=== PATIENT | male | born 1940 | race Two or more races ===

== ENCOUNTER 2022-08-11 09:50 | Emergency (ER) | payer OTHER ==
[~2022-08-11] VITALS: Ht 188 cm; Wt 88.0 kg
[2022-08-11] MEDS ORDERED: TENORMIN25 MG PO (10:17)
[2022-08-11] MEDS ORDERED: COZAAR25 MG (10:17)
[2022-08-11] MEDS ORDERED: HORIZANT300 MG PO (10:18)
== END 2022-08-11 13:32 | disposition home or self-care (01) ==
LOC: ER 09:50
DX: S80.811A Abrasion, right lower leg, initial encounter (principal); X58.XXXA Exposure to other specified factors, initial encounter; Y93.89 Activity, other specified; Y92.89 Other specified places as the place of occurrence of the external cause; R53.1 Weakness; Z88.6 Allergy status to analgesic agent; Z88.0 Allergy status to penicillin

== ENCOUNTER 2025-08-23 19:14 | Inpatient (IN) | payer OTHER ==
[~2025-08-23] VITALS: Ht 182.9 cm; Wt 90.7 kg
[~2025-08-23 19:14] MED LIST: COZAAR25 MG; HORIZANT300 MG PO; TENORMIN25 MG PO
[2025-08-23] MEDS ORDERED: SODIUM CHLORIDE FOR INHALATION 1 VIAL.NEB IH ONE (21:06)
[2025-08-23] MEDS ORDERED: LEVALBUTEROL HCL 0.63 MG/3 ML SOLUTION IH ONE (21:06)
[2025-08-23 21:07] LABS: BASO % 0.7 % (0.1-1.2); EOS # 0.04 (0.04-0.54); EOS % 0.4 % (0.7-7.0); LYMPH # 1.15 (1.18-3.74); LYMPH % 10.9 % (19.3-53.1); MEAN PLATELET VOLUME 9.70 fl (9.4-12.4); MONO # 0.89 (0.24-0.82); MONO % 8.5 % (4.7-12.5); NEUT # 8.20 (1.56-6.13); NEUT % 78.0 % (34.0-71.1); RED CELL DISTRIBUTION WIDTH 12.5 % (11.6-14.4)
[2025-08-23] MEDS ORDERED: LEVALBUTEROL HCL 1.25 MG/3 ML SOLUTION IH SCH (21:15)
[2025-08-23] MEDS ORDERED: 0.9 % SODIUM CHLORIDE 1,000 ML IV ONE (21:15)
[2025-08-23] MEDS ORDERED: GUAIFENESIN 200 MG/10 ML BLIST.PACK PO ONE (21:15)
[2025-08-23] MEDS ORDERED: GUAIFEN/DEXTROMETHORPHAN/PE 10 ML BLIST.PACK PO ONE (21:17)
[2025-08-23 21:39] LABS: ALT/SGPT 11.0 U/L (12-78); AST/SGOT 9.0 U/L (15-37); BILIRUBIN TOTAL 0.47 mg/dL (0.3-1.2); BUN CREA RATIO 26.0 (7.0-25.0); CREATININE SERUM 1.21 mg/dL (0.70-1.30); GFR 57.13; GLOBULINA 3.8 G/DL (2.4-3.5); GLUCOSE FASTING 134.0 mg/dL (65-100); OSMOLALITY SERUM 294.0 MOSM/KG (275-295)
[2025-08-23 22:01] LABS: COVID-19 AG NEGATIVE (NEGATIVE)
[2025-08-24] VITALS (7 sets, daily range): BP systolic 76–101; BP diastolic 46–70; O2SAT 98–100
[2025-08-24 01:07] LABS: URINE APPEARANCE Turbid; URINE BILIRRUBIN Negative (NEGATIVE); URINE BLOOD Moderate; URINE COLOR Orange; URINE GLUCOSE Negative (NEGATIVE); URINE KETONE Negative (NEGATIVE); URINE LEUKOCYTE Large; URINE NITRATE Positive; URINE UROBILINOGEN 0.2 E.U./dl
[2025-08-24 01:11] LABS: URINE EPITHELIAL CELLS 92.6 uL (0.0-38.8); URINE RBC 1068.1 uL (0.0-20.8); URINE WBC 1025.3 uL (0.0-23.2)
[2025-08-24] MEDS ORDERED: GUAIFENESIN 200 MG/10 ML BLIST.PACK PO STA (01:18)
[2025-08-24] MEDS ORDERED: LEVALBUTEROL HCL 0.63 MG/3 ML SOLUTION IH ONE ×5 (01:26→16:13)
[2025-08-24 01:30] LABS: URINE PROTEIN 100 (NEGATIVE)
[2025-08-24] MEDS ORDERED: LEVALBUTEROL HCL 0.63 MG/3 ML SOLUTION IH SCH ×3 (01:30→13:10)
[2025-08-24 01:31] LABS: URINE BACTERIA > 9821.5 uL (0.0-1933); URINE CAST > 21.83 uL (0.0-1.40)
[2025-08-24] MEDS ORDERED: CIPROFLOXACIN IN 5 % DEXTROSE 400 MG/200 ML PIGGYBAG IV STA (01:44)
[2025-08-24] MEDS ORDERED: CIPROFLOXACIN IN 5 % DEXTROSE 400 MG/200 ML PIGGYBAG IV ONE (01:49)
[2025-08-24] MEDS ORDERED: GUAIFENESIN 200 MG/10 ML BLIST.PACK PO ONE (01:49)
[2025-08-24] MEDS ORDERED: NOREPINEPHRINE BITARTRATE 1 MG/ML AMPUL IV ONE (03:25)
[2025-08-24] MEDS ORDERED: NOREPINEPHRINE BITARTRATE 8 MG in DEXTROSE 5 % IN WATER 250 ML IV SCH (03:45)
[2025-08-24] MEDS ORDERED: MEROPENEM 500 MG/VIAL VIAL IV SCH (13:00)
[2025-08-24] MEDS ORDERED: IPRATROPIUM BROMIDE 0.5 MG/2.5 ML AMPUL.NEB IH SCH (13:10)
[2025-08-24] MEDS ORDERED: ENOXAPARIN SODIUM 80 MG/0.8 ML SYRINGE SUBCUTANEO SCH (13:12)
[2025-08-24] MEDS ORDERED: TAMSULOSIN HCL 0.4 MG CAP PO SCH (13:12)
[2025-08-24] MEDS ORDERED: 0.9 % SODIUM CHLORIDE 1,000 ML IV SCH (13:15)
[2025-08-24] MEDS ORDERED: PANTOPRAZOLE SODIUM 40 MG/VIAL VIAL IV SCH (13:15)
[2025-08-24] MEDS ORDERED: IPRATROPIUM BROMIDE 0.5 MG/2.5 ML AMPUL.NEB IH ONE ×2 (13:21→16:13)
[2025-08-24] MEDS ORDERED: ENOXAPARIN SODIUM 80 MG/0.8 ML SYRINGE SUBCUTANEO ONE (15:16)
[2025-08-24] MEDS ORDERED: VANCOMYCIN HCL 1,000 MG VIAL ONE (16:55)
[2025-08-24] MEDS ORDERED: VANCOMYCIN HCL 1,000 MG VIAL IV SCH (17:00)
[2025-08-25] VITALS (13 sets, daily range): BP systolic 84–120; BP diastolic 58–84; O2SAT 97–107
[2025-08-25 08:09] LABS: LDH 154.0 U/L (87-241)
[2025-08-25 08:42] LABS: MYCOPLASMA PNEUMONIAE IGM NON REACTIVE (NO REACTIVE)
[2025-08-25] MEDS ORDERED: MAGNESIUM SULFATE IN WATER 4 GM/100 ML PIGGYBACK IV NR (12:00)
[2025-08-25] MEDS ORDERED: SODIUM CHLORIDE FOR INHALATION 1 VIAL.NEB IH SCH (13:00)
[2025-08-25 15:33] LABS: BASO % 0.4 % (0.1-1.2); EOS # 0.05 (0.04-0.54); EOS % 0.4 % (0.7-7.0); LYMPH # 1.00 (1.18-3.74); LYMPH % 8.5 % (19.3-53.1); MEAN PLATELET VOLUME 10.10 fl (9.4-12.4); MONO # 0.87 (0.24-0.82); MONO % 7.4 % (4.7-12.5); NEUT # 9.64 (1.56-6.13); NEUT % 82.2 % (34.0-71.1); RED CELL DISTRIBUTION WIDTH 12.6 % (11.6-14.4)
[2025-08-25] MEDS ORDERED: VANCOMYCIN HCL 1,000 MG VIAL ONE (15:49)
[2025-08-25 15:53] LABS: ERYTHROCYTE SEDIMENTATION RATE 83 mm/hr (0-20)
[2025-08-25 16:08] LABS: ALT/SGPT 10.0 U/L (12-78); AST/SGOT 11.0 U/L (15-37); BILIRUBIN TOTAL 0.43 mg/dL (0.3-1.2); BUN CREA RATIO 24.0 (7.0-25.0); CREATININE SERUM 1.28 mg/dL (0.70-1.30); GFR 53.54; GLOBULINA 3.1 G/DL (2.4-3.5); GLUCOSE FASTING 95.0 mg/dL (65-100); OSMOLALITY SERUM 295.0 MOSM/KG (275-295)
[2025-08-25 18:20] LABS: INR 1.33
[2025-08-26] VITALS (15 sets, daily range): BP systolic 92–131; BP diastolic 49–91; O2SAT 98–100
[2025-08-26] MEDS ORDERED: AMIODARONE HCL 900 MG/500 ML KIT IV ONE (09:11)
[2025-08-26] MEDS ORDERED: AMIODARONE HCL 50 MG/ML AMPUL IV SCH (09:30)
[2025-08-26] MEDS ORDERED: AMIODARONE HCL 900 MG in DEXTROSE 5 % IN WATER 500 ML IV SCH (09:30)
[2025-08-26 12:02] LABS: BASO % 0.2 % (0.1-1.2); EOS # 0.02 (0.04-0.54); EOS % 0.2 % (0.7-7.0); LYMPH # 0.77 (1.18-3.74); LYMPH % 6.4 % (19.3-53.1); MEAN PLATELET VOLUME 10.00 fl (9.4-12.4); MONO # 0.67 (0.24-0.82); MONO % 5.6 % (4.7-12.5); NEUT # 10.45 (1.56-6.13); NEUT % 86.8 % (34.0-71.1); RED CELL DISTRIBUTION WIDTH 12.5 % (11.6-14.4)
[2025-08-26 13:41] LABS: BUN CREA RATIO 23.0 (7.0-25.0); CREATININE SERUM 1.15 mg/dL (0.70-1.30); GFR 60.58
[2025-08-26 13:46] LABS: GLUCOSE FASTING 220.0 mg/dL (65-100); OSMOLALITY SERUM 300.0 MOSM/KG (275-295)
[2025-08-26] MEDS ORDERED: VANCOMYCIN HCL 1,000 MG VIAL ONE (14:37)
[2025-08-26] MEDS ORDERED: SOD FERRIC GLUC COMPLX/SUCROSE 62.5 MG in 0.9 % SODIUM CHLORIDE 50 ML IV SCH (17:00)
[2025-08-27] VITALS (25 sets, daily range): BP systolic 102–145; BP diastolic 58–95; O2SAT 98–100
[2025-08-27] MEDS ORDERED: AMIODARONE HCL 200 MG TABLET PO SCH (09:00)
[2025-08-27] MEDS ORDERED: WATER IV ONE ×3 (11:11→11:20)
[2025-08-27] MEDS ORDERED: DEXTROSE 5% IV ONE ×3 (11:11→11:20)
[2025-08-27] MEDS ORDERED: AMIODARONE HCL 900 MG in DEXTROSE 5 % IN WATER 500 ML IV SCH (11:45)
[2025-08-27] MEDS ORDERED: VANCOMYCIN HCL 1,000 MG VIAL ONE (15:28)
[2025-08-27] MEDS ORDERED: CEFEPIME HCL 2,000 MG VIAL IV SCH (21:00)
[2025-08-27] MEDS ORDERED: PANTOPRAZOLE SODIUM 40 MG/VIAL VIAL IV PUSH SCH (21:00)
[2025-08-28] VITALS (23 sets, daily range): BP systolic 118–140; BP diastolic 67–96; O2SAT 97–100
[2025-08-28 00:55] LABS: BASO % 0.3 % (0.1-1.2); EOS # 0.08 (0.04-0.54); EOS % 0.8 % (0.7-7.0); LYMPH # 0.79 (1.18-3.74); LYMPH % 8.3 % (19.3-53.1); MEAN PLATELET VOLUME 9.60 fl (9.4-12.4); MONO # 0.65 (0.24-0.82); MONO % 6.8 % (4.7-12.5); NEUT # 7.81 (1.56-6.13); NEUT % 81.8 % (34.0-71.1); RED CELL DISTRIBUTION WIDTH 14.1 % (11.6-14.4)
[2025-08-28] MEDS ORDERED: MORPHINE SULFATE 4 MG/ML CARTRIDGE IV PRN (05:00)
[2025-08-28 05:59] LABS: URINE APPEARANCE Turbid; URINE BILIRRUBIN Negative (NEGATIVE); URINE BLOOD Large; URINE COLOR Yellow; URINE GLUCOSE Negative (NEGATIVE); URINE KETONE 15 (NEGATIVE); URINE LEUKOCYTE Small; URINE NITRATE Negative; URINE UROBILINOGEN 0.2 E.U./dl
[2025-08-28 06:03] LABS: URINE BACTERIA 97.2 uL (0.0-1933); URINE EPITHELIAL CELLS 80.9 uL (0.0-38.8); URINE RBC 1094.5 uL (0.0-20.8); URINE WBC 258.9 uL (0.0-23.2)
[2025-08-28 06:23] LABS: URINE CAST > 21.83 uL (0.0-1.40); URINE CRYSTALS MANY /HPF; URINE PROTEIN 100 (NEGATIVE)
[2025-08-28] MEDS ORDERED: VANCOMYCIN HCL 1,000 MG VIAL ONE (17:33)
[2025-08-29] VITALS (18 sets, daily range): BP systolic 101–1289; BP diastolic 61–98; O2SAT 99–100
[2025-08-29] MEDS ORDERED: VANCOMYCIN HCL 1,000 MG VIAL ONE (16:39)
[2025-08-29] MEDS ORDERED: POLYVINYL ALCOHOL 15 ML DROPS OP SCH (19:04)
[2025-08-29] MEDS ORDERED: CHLORHEXIDINE GLUCONATE 15ML BRUSH KIT MM SCH (19:05)
[2025-08-30] VITALS (21 sets, daily range): BP systolic 93–127; BP diastolic 60–92; O2SAT 95–100
[2025-08-30 07:14] LABS: BASO % 0.5 % (0.1-1.2); EOS # 0.13 (0.04-0.54); EOS % 1.4 % (0.7-7.0); LYMPH # 0.70 (1.18-3.74); LYMPH % 7.4 % (19.3-53.1); MEAN PLATELET VOLUME 10.70 fl (9.4-12.4); MONO # 0.61 (0.24-0.82); MONO % 6.5 % (4.7-12.5); NEUT # 7.75 (1.56-6.13); NEUT % 82.0 % (34.0-71.1); RED CELL DISTRIBUTION WIDTH 13.9 % (11.6-14.4)
[2025-08-30 08:10] LABS: ALT/SGPT 9.0 U/L (12-78); AST/SGOT 10.0 U/L (15-37); BILIRUBIN TOTAL 0.32 mg/dL (0.3-1.2); BUN CREA RATIO 24.0 (7.0-25.0); CREATININE SERUM 0.78 mg/dL (0.70-1.30); GFR 94.83; GLOBULINA 2.9 G/DL (2.4-3.5); GLUCOSE FASTING 149.0 mg/dL (65-100); OSMOLALITY SERUM 301.0 MOSM/KG (275-295)
[2025-08-30] MEDS ORDERED: MAGNESIUM SULFATE IN WATER 4 GM/100 ML PIGGYBACK IV NR (10:00)
[2025-08-30] MEDS ORDERED: POTASSIUM PHOS,M-BASIC-D-BASIC 3 MM/ML VIAL IV ONE (12:00)
[2025-08-30] MEDS ORDERED: VANCOMYCIN HCL 1,000 MG VIAL ONE (15:09)
[2025-08-30] MEDS ORDERED: MORPHINE SULFATE 4 MG/ML CARTRIDGE IV PRN (23:45)
[2025-08-30] MEDS ORDERED: MORPHINE SULFATE 4 MG/ML CARTRIDGE IV SCH (23:46)
[2025-08-31] VITALS (23 sets, daily range): BP systolic 102–145; BP diastolic 61–97; O2SAT 95–100
[2025-08-31 08:17] LABS: BASO % 0.8 % (0.1-1.2); EOS # 0.20 (0.04-0.54); EOS % 2.2 % (0.7-7.0); LYMPH # 0.85 (1.18-3.74); LYMPH % 9.3 % (19.3-53.1); MEAN PLATELET VOLUME 10.90 fl (9.4-12.4); MONO # 0.61 (0.24-0.82); MONO % 6.7 % (4.7-12.5); NEUT # 7.07 (1.56-6.13); NEUT % 77.5 % (34.0-71.1); RED CELL DISTRIBUTION WIDTH 14.0 % (11.6-14.4)
[2025-08-31 08:48] LABS: ALT/SGPT 11.0 U/L (12-78); AST/SGOT 11.0 U/L (15-37); BILIRUBIN TOTAL 0.29 mg/dL (0.3-1.2); BUN CREA RATIO 26.0 (7.0-25.0); CREATININE SERUM 0.74 mg/dL (0.70-1.30); GFR 100.77; GLOBULINA 2.9 G/DL (2.4-3.5); GLUCOSE FASTING 107.0 mg/dL (65-100); OSMOLALITY SERUM 299.0 MOSM/KG (275-295)
[2025-08-31 09:58] LABS: BAND MAN 6.0 %; LYMPHOCYTE MAN 6.0 %; MONOCYTE MAN 3.0 %; NEUTROPHILS MAN 81.0 %
[2025-08-31 09:59] LABS: EOSINOPHIL MAN 4.0 %
[2025-08-31] MEDS ORDERED: POTASSIUM PHOS,M-BASIC-D-BASIC 18 MM in 0.9 % SODIUM CHLORIDE 250 ML IV ONE (12:00)
[2025-08-31] MEDS ORDERED: AMIODARONE HCL 900 MG/500 ML KIT IV ONE (20:25)
[2025-08-31] MEDS ORDERED: MORPHINE SULFATE 4 MG/ML CARTRIDGE IV PRN (23:45)
[2025-09-01] VITALS (13 sets, daily range): BP systolic 97–141; BP diastolic 57–90; O2SAT 100
[2025-09-01] MEDS ORDERED: POTASSIUM PHOS,M-BASIC-D-BASIC 18 MM in 0.9 % SODIUM CHLORIDE 250 ML IV ONE (14:00)
[2025-09-01] MEDS ORDERED: AMIODARONE HCL 200 MG TABLET NGT SCH (17:00)
[2025-09-01] MEDS ORDERED: ALBUMIN HUMAN 100 ML VIAL IV ONE (17:00)
[2025-09-02 04:00] VITALS: BP 125/71; O2SAT 100
[2025-09-02 07:14] VITALS: BP 117/69; O2SAT 100
[2025-09-02 09:54] LABS: BASO % 0.5 % (0.1-1.2); EOS # 0.23 (0.04-0.54); EOS % 2.4 % (0.7-7.0); LYMPH # 0.68 (1.18-3.74); LYMPH % 7.2 % (19.3-53.1); MEAN PLATELET VOLUME 10.30 fl (9.4-12.4); MONO # 0.69 (0.24-0.82); MONO % 7.3 % (4.7-12.5); NEUT # 7.57 (1.56-6.13); NEUT % 80.6 % (34.0-71.1); RED CELL DISTRIBUTION WIDTH 14.3 % (11.6-14.4)
[2025-09-02 10:36] LABS: ALT/SGPT 13.0 U/L (12-78); AST/SGOT 15.0 U/L (15-37); BILIRUBIN TOTAL 0.32 mg/dL (0.3-1.2); BUN CREA RATIO 26.0 (7.0-25.0); CREATININE SERUM 0.97 mg/dL (0.70-1.30); GFR 73.73; GLOBULINA 3.0 G/DL (2.4-3.5); GLUCOSE FASTING 106.0 mg/dL (65-100); OSMOLALITY SERUM 295.0 MOSM/KG (275-295)
[2025-09-02 12:00] VITALS: BP 160/99; O2SAT 100
[2025-09-02] MEDS ORDERED: MAGNESIUM SULFATE IN WATER 4 GM/100 ML PIGGYBACK IV NR (12:00)
[2025-09-02] MEDS ORDERED: NAPH,MB-DB/K PH,MBDB 1 PKT PACKET PO SCH (13:00)
[2025-09-02] MEDS ORDERED: MORPHINE SULFATE 4 MG/ML CARTRIDGE IV PRN (14:00)
[2025-09-02 15:15] VITALS: BP 139/84; O2SAT 100
[2025-09-02] MEDS ORDERED: SOD FERRIC GLUC COMPLX/SUCROSE 62.5 MG in 0.9 % SODIUM CHLORIDE 50 ML IV SCH (17:00)
[2025-09-02 23:06] VITALS: BP 123/70
[2025-09-03 04:00] VITALS: BP 125/73; O2SAT 100
[2025-09-03 06:41] LABS: BASO % 0.5 % (0.1-1.2); EOS # 0.21 (0.04-0.54); EOS % 2.3 % (0.7-7.0); LYMPH # 0.61 (1.18-3.74); LYMPH % 6.7 % (19.3-53.1); MEAN PLATELET VOLUME 10.50 fl (9.4-12.4); MONO # 0.68 (0.24-0.82); MONO % 7.5 % (4.7-12.5); NEUT # 7.35 (1.56-6.13); NEUT % 80.7 % (34.0-71.1); RED CELL DISTRIBUTION WIDTH 14.2 % (11.6-14.4)
[2025-09-03 07:10] LABS: ALT/SGPT 12.0 U/L (12-78); AST/SGOT 16.0 U/L (15-37); BILIRUBIN TOTAL 0.31 mg/dL (0.3-1.2); BUN CREA RATIO 30.0 (7.0-25.0); CREATININE SERUM 0.96 mg/dL (0.70-1.30); GFR 74.62; GLOBULINA 3.2 G/DL (2.4-3.5); GLUCOSE FASTING 106.0 mg/dL (65-100); OSMOLALITY SERUM 297.0 MOSM/KG (275-295)
[2025-09-03 07:14] VITALS: BP 166/81; O2SAT 100
[2025-09-03 08:00] VITALS: BP 135/77; O2SAT 100
[2025-09-03 12:00] VITALS: BP 139/81; O2SAT 100
[2025-09-03 15:13] VITALS: BP 139/81; O2SAT 100
[2025-09-03 23:00] VITALS: BP 125/88; O2SAT 100
[2025-09-04 04:20] VITALS: BP 124/84; O2SAT 100
[2025-09-04] MEDS ORDERED: FAMOTIDINE/PF 20 MG in 0.9 % SODIUM CHLORIDE 100 ML IV SCH (05:00)
[2025-09-04 07:39] VITALS: BP 120/74; O2SAT 99
[2025-09-04] MEDS ORDERED: METHYLPREDNISOLONE SOD SUCC 40 MG VIAL IV NR (10:15)
[2025-09-04 12:00] VITALS: BP 138/70; O2SAT 100
[2025-09-04 15:18] VITALS: BP 138/70; O2SAT 100
[2025-09-04 20:06] VITALS: BP 131/72; O2SAT 100
[2025-09-04] MEDS ORDERED: METHYLPREDNISOLONE SOD SUCC 40 MG VIAL IV SCH (21:00)
[2025-09-05 04:00] VITALS: BP 101/63; O2SAT 100
[2025-09-05 06:30] LABS: BASO % 0.1 % (0.1-1.2); EOS # 0.00 (0.04-0.54); EOS % 0.0 % (0.7-7.0); LYMPH # 0.51 (1.18-3.74); LYMPH % 4.2 % (19.3-53.1); MEAN PLATELET VOLUME 10.80 fl (9.4-12.4); MONO # 0.53 (0.24-0.82); MONO % 4.4 % (4.7-12.5); NEUT # 10.88 (1.56-6.13); NEUT % 89.3 % (34.0-71.1); RED CELL DISTRIBUTION WIDTH 14.6 % (11.6-14.4)
[2025-09-05 06:56] VITALS: BP 87/55; O2SAT 95
[2025-09-05 07:04] LABS: BUN CREA RATIO 30.0 (7.0-25.0); CREATININE SERUM 1.45 mg/dL (0.70-1.30); GFR 46.36
[2025-09-05 07:05] LABS: GLUCOSE FASTING 204.0 mg/dL (65-100); OSMOLALITY SERUM 309.0 MOSM/KG (275-295)
[2025-09-05 12:00] VITALS: BP 109/68; O2SAT 100
[2025-09-05 15:02] VITALS: BP 106/67; O2SAT 100
[2025-09-05] MEDS ORDERED: DEXTROSE 5 % IN WATER 1,000 ML IV SCH (16:30)
[2025-09-05] MEDS ORDERED: ANIDULAFUNGIN 100 MG VIAL IV NR (17:00)
[2025-09-05 20:00] VITALS: BP 121/65; O2SAT 100
[2025-09-05] MEDS ORDERED: AMIODARONE HCL 900 MG/500 ML KIT IV ONE (22:30)
[2025-09-05] MEDS ORDERED: AMIODARONE HCL 900 MG in DEXTROSE 5 % IN WATER 500 ML IV SCH (22:45)
[2025-09-05 23:06] VITALS: BP 121/61; O2SAT 99
[2025-09-06] VITALS (23 sets, daily range): BP systolic 89–123; BP diastolic 50–76; O2SAT 98–100
[2025-09-06] MEDS ORDERED: AMIODARONE HCL 900 MG in DEXTROSE 5 % IN WATER 500 ML IV SCH (06:45)
[2025-09-06 15:10] LABS: BASO % 0.1 % (0.1-1.2); EOS # 0.00 (0.04-0.54); EOS % 0.0 % (0.7-7.0); LYMPH # 0.59 (1.18-3.74); LYMPH % 4.0 % (19.3-53.1); MEAN PLATELET VOLUME 10.30 fl (9.4-12.4); MONO # 1.05 (0.24-0.82); MONO % 7.1 % (4.7-12.5); NEUT # 12.55 (1.56-6.13); NEUT % 85.5 % (34.0-71.1); RED CELL DISTRIBUTION WIDTH 15.9 % (11.6-14.4)
[2025-09-06 16:44] LABS: ALT/SGPT 19.0 U/L (12-78); AST/SGOT 15.0 U/L (15-37); BILIRUBIN TOTAL 0.45 mg/dL (0.3-1.2); BUN CREA RATIO 23.0 (7.0-25.0); CREATININE SERUM 2.66 mg/dL (0.70-1.30); GFR 23.02; GLOBULINA 3.5 G/DL (2.4-3.5); GLUCOSE FASTING 177.0 mg/dL (65-100); OSMOLALITY SERUM 307.0 MOSM/KG (275-295)
[2025-09-06] MEDS ORDERED: ANIDULAFUNGIN 100 MG VIAL IV SCH (17:00)
[2025-09-06] MEDS ORDERED: MEROPENEM 500 MG/VIAL VIAL IV SCH (21:00)
[2025-09-06 23:05] LABS: URINE APPEARANCE Turbid; URINE BILIRRUBIN Negative (NEGATIVE); URINE BLOOD Large; URINE COLOR Dark Yellow; URINE KETONE Trace (NEGATIVE); URINE LEUKOCYTE Moderate; URINE NITRATE Negative; URINE UROBILINOGEN 0.2 E.U./dl
[2025-09-06 23:11] LABS: URINE BACTERIA 1063.2 uL (0.0-1933); URINE CAST 15.33 uL (0.0-1.40); URINE EPITHELIAL CELLS 78.2 uL (0.0-38.8); URINE WBC 900.0 uL (0.0-23.2)
[2025-09-06 23:31] LABS: URINE CRYSTALS MODERATE /HPF; URINE GLUCOSE 100 MG/DL (NEGATIVE); URINE PROTEIN 300 (NEGATIVE)
[2025-09-07] VITALS (21 sets, daily range): BP systolic 85–126; BP diastolic 48–74; O2SAT 100
[2025-09-07] MEDS ORDERED: NOREPINEPHRINE BITARTRATE 8 MG in DEXTROSE 5 % IN WATER 250 ML IV SCH (09:00)
[2025-09-07] MEDS ORDERED: LINEZOLID IN DEXTROSE 5% 300 ML IV SCH (17:00)
[2025-09-07] MEDS ORDERED: SODIUM CHLORIDE 0.45 % 1,000 ML IV SCH (21:15)
[2025-09-08] VITALS (19 sets, daily range): BP systolic 105–141; BP diastolic 53–85; O2SAT 100
[2025-09-08 07:48] LABS: ALT/SGPT 18.0 U/L (12-78); AST/SGOT 20.0 U/L (15-37); BILIRUBIN TOTAL 0.45 mg/dL (0.3-1.2); BUN CREA RATIO 21.0 (7.0-25.0); CREATININE SERUM 3.62 mg/dL (0.70-1.30); GFR 16.13; GLOBULINA 3.4 G/DL (2.4-3.5)
[2025-09-08 08:11] LABS: OSMOLALITY SERUM 308.0 MOSM/KG (275-295)
[2025-09-08 08:12] LABS: GLUCOSE FASTING 202.0 mg/dL (65-100)
[2025-09-08 08:36] LABS: BASO % 0.2 % (0.1-1.2); EOS # 0.00 (0.04-0.54); EOS % 0.0 % (0.7-7.0); LYMPH # 0.68 (1.18-3.74); LYMPH % 3.8 % (19.3-53.1); MEAN PLATELET VOLUME 10.80 fl (9.4-12.4); MONO # 1.15 (0.24-0.82); MONO % 6.4 % (4.7-12.5); NEUT # 15.15 (1.56-6.13); NEUT % 84.8 % (34.0-71.1); RED CELL DISTRIBUTION WIDTH 16.0 % (11.6-14.4)
[2025-09-08 10:03] LABS: BAND MAN 1.0 %; LYMPHOCYTE MAN 2.0 %; METAMYELOCYTE 2.0 %; MONOCYTE MAN 4.0 %; MYELOCYTE 1.0 %; NEUTROPHILS MAN 90.0 %
[2025-09-08] MEDS ORDERED: NITROGLYCERIN 1 INCH OINT..GM. TD SCH (17:00)
[2025-09-09] VITALS (11 sets, daily range): BP systolic 96–147; BP diastolic 55–76; O2SAT 100
[2025-09-09 11:19] LABS: ALT/SGPT 17.0 U/L (12-78); AST/SGOT 14.0 U/L (15-37); BILIRUBIN TOTAL 0.55 mg/dL (0.3-1.2); GLOBULINA 3.3 G/DL (2.4-3.5); GLUCOSE FASTING 168.0 mg/dL (65-100)
[2025-09-09 11:23] LABS: BUN CREA RATIO 21.0 (7.0-25.0); GFR 13.66; OSMOLALITY SERUM 307.0 MOSM/KG (275-295)
[2025-09-09 11:24] LABS: CREATININE SERUM 4.18 mg/dL (0.70-1.30)
[2025-09-09] MEDS ORDERED: ALBUMIN HUMAN 100 ML VIAL IV NR (19:00)
[2025-09-10] VITALS (18 sets, daily range): BP systolic 104–132; BP diastolic 51–83; O2SAT 95–100
[2025-09-10 03:25] LABS: BASO % 0.1 % (0.1-1.2); EOS # 0.00 (0.04-0.54); EOS % 0.0 % (0.7-7.0); LYMPH # 0.47 (1.18-3.74); LYMPH % 3.1 % (19.3-53.1); MEAN PLATELET VOLUME 10.50 fl (9.4-12.4); MONO # 0.95 (0.24-0.82); MONO % 6.2 % (4.7-12.5); NEUT # 13.22 (1.56-6.13); NEUT % 86.0 % (34.0-71.1); RED CELL DISTRIBUTION WIDTH 15.6 % (11.6-14.4)
[2025-09-10 03:44] LABS: D DIMER 2.57 MG/L; INR 1.11
[2025-09-10 03:45] LABS: FE 52.0 ug/dl (65-175); LDH 274.0 U/L (87-241)
[2025-09-10] MEDS ORDERED: ALBUMIN HUMAN 100 ML VIAL IV SCH ×2 (05:00)
[2025-09-10 07:39] LABS: ALT/SGPT 18.0 U/L (12-78); AST/SGOT 15.0 U/L (15-37); BILIRUBIN TOTAL 1.01 mg/dL (0.3-1.2); BUN CREA RATIO 18.0 (7.0-25.0); CREATININE SERUM 2.42 mg/dL (0.70-1.30); GFR 25.67; GLOBULINA 2.6 G/DL (2.4-3.5); GLUCOSE FASTING 133.0 mg/dL (65-100); OSMOLALITY SERUM 285.0 MOSM/KG (275-295)
[2025-09-10 12:19] LABS: ALT/SGPT 18.0 U/L (12-78); AST/SGOT 18.0 U/L (15-37); BILIRUBIN TOTAL 1.24 mg/dL (0.3-1.2); BUN CREA RATIO 16.0 (7.0-25.0); CREATININE SERUM 1.36 mg/dL (0.70-1.30); GFR 49.92; GLOBULINA 2.4 G/DL (2.4-3.5); GLUCOSE FASTING 114.0 mg/dL (65-100); OSMOLALITY SERUM 280.0 MOSM/KG (275-295)
[2025-09-10 13:31] LABS: FOLIC ACID 3.33 ng/ml (4.78-20)
[2025-09-11] VITALS (24 sets, daily range): BP systolic 103–147; BP diastolic 55–91; O2SAT 97–100
[2025-09-11 15:15] LABS: BASO % 0.1 % (0.1-1.2); EOS # 0.03 (0.04-0.54); EOS % 0.2 % (0.7-7.0); LYMPH # 0.36 (1.18-3.74); LYMPH % 2.1 % (19.3-53.1); MEAN PLATELET VOLUME 10.90 fl (9.4-12.4); MONO # 0.78 (0.24-0.82); MONO % 4.6 % (4.7-12.5); NEUT # 15.50 (1.56-6.13); NEUT % 91.1 % (34.0-71.1); RED CELL DISTRIBUTION WIDTH 16.3 % (11.6-14.4)
[2025-09-11 15:57] LABS: ALT/SGPT 22.0 U/L (12-78); AST/SGOT 30.0 U/L (15-37); BILIRUBIN TOTAL 1.01 mg/dL (0.3-1.2); BUN CREA RATIO 15.0 (7.0-25.0); CREATININE SERUM 2.15 mg/dL (0.70-1.30); GFR 29.43; GLOBULINA 2.6 G/DL (2.4-3.5); GLUCOSE FASTING 96.0 mg/dL (65-100); OSMOLALITY SERUM 277.0 MOSM/KG (275-295)
[2025-09-12] VITALS (23 sets, daily range): BP systolic 93–143; BP diastolic 60–89; O2SAT 98–100
[2025-09-12 06:20] LABS: BASO % 0.1 % (0.1-1.2); EOS # 0.08 (0.04-0.54); EOS % 0.5 % (0.7-7.0); LYMPH # 0.46 (1.18-3.74); LYMPH % 2.6 % (19.3-53.1); MEAN PLATELET VOLUME 11.00 fl (9.4-12.4); MONO # 0.81 (0.24-0.82); MONO % 4.6 % (4.7-12.5); NEUT # 15.68 (1.56-6.13); NEUT % 89.5 % (34.0-71.1); RED CELL DISTRIBUTION WIDTH 15.9 % (11.6-14.4)
[2025-09-12 06:23] LABS: URINE APPEARANCE Clear; URINE BILIRRUBIN Negative (NEGATIVE); URINE BLOOD Large; URINE COLOR Yellow; URINE GLUCOSE Negative (NEGATIVE); URINE KETONE Negative (NEGATIVE); URINE LEUKOCYTE Trace; URINE NITRATE Negative; URINE UROBILINOGEN 0.2 E.U./dl
[2025-09-12 06:26] LABS: URINE BACTERIA 28.8 uL (0.0-1933); URINE EPITHELIAL CELLS 3.5 uL (0.0-38.8); URINE RBC 609.4 uL (0.0-20.8); URINE WBC 11.5 uL (0.0-23.2)
[2025-09-12 06:29] LABS: URINE CAST 0.14 uL (0.0-1.40); URINE PROTEIN 100 (NEGATIVE)
[2025-09-12 06:51] LABS: ALT/SGPT 23.0 U/L (12-78); AST/SGOT 27.0 U/L (15-37); BILIRUBIN TOTAL 0.98 mg/dL (0.3-1.2); BUN CREA RATIO 16.0 (7.0-25.0); CREATININE SERUM 2.55 mg/dL (0.70-1.30); GFR 24.17; GLOBULINA 2.7 G/DL (2.4-3.5); GLUCOSE FASTING 98.0 mg/dL (65-100); OSMOLALITY SERUM 274.0 MOSM/KG (275-295)
[2025-09-12 09:34] LABS: CORTISOL 12.5 ug/dl
[2025-09-13] VITALS (11 sets, daily range): BP systolic 110–132; BP diastolic 54–76; O2SAT 100
[2025-09-13 07:10] LABS: ALT/SGPT 23.0 U/L (12-78); AST/SGOT 29.0 U/L (15-37); BILIRUBIN TOTAL 1.17 mg/dL (0.3-1.2); BUN CREA RATIO 15.0 (7.0-25.0); CREATININE SERUM 2.01 mg/dL (0.70-1.30); GFR 31.81; GLOBULINA 2.5 G/DL (2.4-3.5); GLUCOSE FASTING 129.0 mg/dL (65-100); OSMOLALITY SERUM 273.0 MOSM/KG (275-295)
[2025-09-13] MEDS ORDERED: POTASSIUM CHLORIDE 20MEQ/100ML H2O PB IV NR (11:45)
[2025-09-13] MEDS ORDERED: AMIODARONE HCL 200 MG TABLET NGT SCH (17:00)
[2025-09-14] VITALS (7 sets, daily range): BP systolic 105–135; BP diastolic 61–77; O2SAT 100
[2025-09-14 05:11] LABS: ALT/SGPT 26.0 U/L (12-78); AST/SGOT 30.0 U/L (15-37); BILIRUBIN TOTAL 1.05 mg/dL (0.3-1.2); BUN CREA RATIO 15.0 (7.0-25.0); CREATININE SERUM 2.55 mg/dL (0.70-1.30); GFR 24.17; GLOBULINA 2.8 G/DL (2.4-3.5); GLUCOSE FASTING 112.0 mg/dL (65-100); OSMOLALITY SERUM 268.0 MOSM/KG (275-295)
[2025-09-14 05:25] LABS: BASO % 0.1 % (0.1-1.2); EOS # 0.15 (0.04-0.54); EOS % 0.8 % (0.7-7.0); LYMPH # 0.60 (1.18-3.74); LYMPH % 3.3 % (19.3-53.1); MEAN PLATELET VOLUME 10.60 fl (9.4-12.4); MONO # 1.19 (0.24-0.82); MONO % 6.6 % (4.7-12.5); NEUT # 15.69 (1.56-6.13); NEUT % 87.5 % (34.0-71.1); RED CELL DISTRIBUTION WIDTH 15.6 % (11.6-14.4)
[2025-09-14] MEDS ORDERED: 0.9 % SODIUM CHLORIDE 1,000 ML IV SCH (08:15)
[2025-09-14] MEDS ORDERED: EPOETIN ALFA-EPBX 10,000 UNIT/ML VIAL (Retacrit) SUBCUTANEO SCH (17:00)
[2025-09-15] MEDS ORDERED: LEVALBUTEROL HCL 1.25 MG/3 ML SOLUTION IH ONE (03:02)
[2025-09-15 04:00] VITALS: BP 110/66; O2SAT 100
[2025-09-15 07:41] VITALS: BP 129/60; O2SAT 100
[2025-09-15 07:44] LABS: ALT/SGPT 24.0 U/L (12-78); AST/SGOT 29.0 U/L (15-37); BILIRUBIN TOTAL 0.86 mg/dL (0.3-1.2); BUN CREA RATIO 16.0 (7.0-25.0); CREATININE SERUM 2.95 mg/dL (0.70-1.30); GFR 20.43; GLOBULINA 2.7 G/DL (2.4-3.5); GLUCOSE FASTING 94.0 mg/dL (65-100); OSMOLALITY SERUM 277.0 MOSM/KG (275-295)
[2025-09-15 12:00] VITALS: BP 115/70; O2SAT 100
[2025-09-15 15:15] VITALS: BP 101/58; O2SAT 100
[2025-09-15] MEDS ORDERED: LINEZOLID IN DEXTROSE 5% 300 ML IV SCH (17:00)
[2025-09-15 20:00] VITALS: BP 119/81; O2SAT 100
[2025-09-15] MEDS ORDERED: MEROPENEM 500 MG/VIAL VIAL IV SCH (21:00)
[2025-09-15 23:27] VITALS: BP 112/55; O2SAT 100
[2025-09-16 04:00] VITALS: BP 121/63; O2SAT 100
[2025-09-16 07:18] VITALS: BP 116/60; O2SAT 100
[2025-09-16 12:04] VITALS: BP 120/71; O2SAT 100
[2025-09-16 15:16] VITALS: BP 118/68; O2SAT 100
[2025-09-16] MEDS ORDERED: ANIDULAFUNGIN 100 MG VIAL IV SCH (17:00)
[2025-09-16 20:00] VITALS: BP 113/59; O2SAT 100
[2025-09-16 23:03] VITALS: BP 124/63; O2SAT 100
[2025-09-17 05:06] VITALS: BP 111/66; O2SAT 100
[2025-09-17 07:00] LABS: BASO % 0.2 % (0.1-1.2); EOS # 0.17 (0.04-0.54); EOS % 1.1 % (0.7-7.0); LYMPH # 0.49 (1.18-3.74); LYMPH % 3.2 % (19.3-53.1); MEAN PLATELET VOLUME 10.40 fl (9.4-12.4); MONO # 1.22 (0.24-0.82); MONO % 8.0 % (4.7-12.5); NEUT # 12.97 (1.56-6.13); NEUT % 84.6 % (34.0-71.1); RED CELL DISTRIBUTION WIDTH 15.6 % (11.6-14.4)
[2025-09-17 07:10] VITALS: BP 111/65; O2SAT 100
[2025-09-17 07:40] LABS: ALT/SGPT 25.0 U/L (12-78); AST/SGOT 23.0 U/L (15-37); BILIRUBIN TOTAL 0.62 mg/dL (0.3-1.2); BUN CREA RATIO 21.0 (7.0-25.0); CREATININE SERUM 3.06 mg/dL (0.70-1.30); GFR 19.58; GLOBULINA 2.7 G/DL (2.4-3.5); GLUCOSE FASTING 139.0 mg/dL (65-100); OSMOLALITY SERUM 283.0 MOSM/KG (275-295)
[2025-09-17 12:50] VITALS: BP 134/69; O2SAT 100
[2025-09-17 15:11] VITALS: BP 112/61; O2SAT 100
[2025-09-17 20:00] VITALS: BP 120/59; O2SAT 100
[2025-09-17 23:02] VITALS: BP 119/65; O2SAT 100
[2025-09-18 04:44] VITALS: BP 112/63; O2SAT 100
[2025-09-18 06:00] VITALS: BP 134/89; O2SAT 100
[2025-09-18 07:04] VITALS: BP 112/63; O2SAT 99
[2025-09-18 12:48] LABS: BASO % 0.2 % (0.1-1.2); EOS # 0.07 (0.04-0.54); EOS % 0.6 % (0.7-7.0); LYMPH # 0.32 (1.18-3.74); LYMPH % 2.6 % (19.3-53.1); MEAN PLATELET VOLUME 9.70 fl (9.4-12.4); MONO # 0.67 (0.24-0.82); MONO % 5.5 % (4.7-12.5); NEUT # 10.77 (1.56-6.13); NEUT % 88.8 % (34.0-71.1); RED CELL DISTRIBUTION WIDTH 15.2 % (11.6-14.4)
[2025-09-18 13:18] LABS: ALT/SGPT 22.0 U/L (12-78); AST/SGOT 23.0 U/L (15-37); BILIRUBIN TOTAL 1.12 mg/dL (0.3-1.2); BUN CREA RATIO 20.0 (7.0-25.0); CREATININE SERUM 1.67 mg/dL (0.70-1.30); GFR 39.39; GLOBULINA 2.7 G/DL (2.4-3.5); GLUCOSE FASTING 137.0 mg/dL (65-100); OSMOLALITY SERUM 281.0 MOSM/KG (275-295)
[2025-09-18 15:32] VITALS: BP 112/70; O2SAT 100
[2025-09-18] MEDS ORDERED: POTASSIUM CHLORIDE IN WATER 100 ML IV NR ×2 (16:00→18:15)
[2025-09-18 20:43] VITALS: BP 127/68; O2SAT 100
[2025-09-18 23:22] VITALS: BP 117/65; O2SAT 100
[2025-09-19 04:20] VITALS: BP 120/62; O2SAT 100
[2025-09-19 06:57] VITALS: BP 116/73; O2SAT 100
[2025-09-19 07:09] LABS: BUN CREA RATIO 21.0 (7.0-25.0); CREATININE SERUM 2.03 mg/dL (0.70-1.30); GFR 31.45; GLUCOSE FASTING 114.0 mg/dL (65-100); OSMOLALITY SERUM 283.0 MOSM/KG (275-295)
[2025-09-19 11:57] VITALS: BP 119/72; O2SAT 100
[2025-09-19] MEDS ORDERED: LEVALBUTEROL HCL 0.63 MG/3 ML SOLUTION IH SCH (12:00)
[2025-09-19] MEDS ORDERED: IPRATROPIUM BROMIDE 0.5 MG/2.5 ML AMPUL.NEB IH SCH (12:00)
[2025-09-19 15:33] VITALS: BP 129/62; O2SAT 100
[2025-09-19 20:28] VITALS: BP 128/76; O2SAT 100
[2025-09-19 23:17] VITALS: BP 124/64; O2SAT 100
[2025-09-20 04:01] VITALS: BP 130/75; O2SAT 99
[2025-09-20 06:50] LABS: BASO % 0.3 % (0.1-1.2); EOS # 0.15 (0.04-0.54); EOS % 1.4 % (0.7-7.0); LYMPH # 0.46 (1.18-3.74); LYMPH % 4.3 % (19.3-53.1); MEAN PLATELET VOLUME 10.30 fl (9.4-12.4); MONO # 0.67 (0.24-0.82); MONO % 6.3 % (4.7-12.5); NEUT # 9.24 (1.56-6.13); NEUT % 86.1 % (34.0-71.1); RED CELL DISTRIBUTION WIDTH 15.6 % (11.6-14.4)
[2025-09-20 06:55] VITALS: BP 138/81; O2SAT 100
[2025-09-20 11:58] VITALS: BP 138/81; O2SAT 100
[2025-09-20 15:30] VITALS: BP 136/78; O2SAT 100
[2025-09-20 20:00] VITALS: BP 139/65; O2SAT 96
[2025-09-20 23:04] VITALS: BP 143/72; O2SAT 99
[2025-09-21 04:00] VITALS: BP 138/69; O2SAT 100
[2025-09-21 06:56] VITALS: BP 131/85; O2SAT 100
[2025-09-21 12:00] VITALS: BP 115/66; O2SAT 100
[2025-09-21 15:30] VITALS: BP 127/67; O2SAT 100
[2025-09-21 20:00] VITALS: BP 139/77; O2SAT 100
[2025-09-21 23:30] VITALS: BP 145/81; O2SAT 100
[2025-09-22] VITALS (8 sets, daily range): BP systolic 127–156; BP diastolic 74–88; O2SAT 100
[2025-09-22 07:50] LABS: BASO % 0.3 % (0.1-1.2); EOS # 0.19 (0.04-0.54); EOS % 1.8 % (0.7-7.0); LYMPH # 0.48 (1.18-3.74); LYMPH % 4.6 % (19.3-53.1); MEAN PLATELET VOLUME 9.70 fl (9.4-12.4); MONO # 0.58 (0.24-0.82); MONO % 5.6 % (4.7-12.5); NEUT # 8.96 (1.56-6.13); NEUT % 85.9 % (34.0-71.1); RED CELL DISTRIBUTION WIDTH 15.5 % (11.6-14.4)
[2025-09-22 08:27] LABS: ALT/SGPT 24.0 U/L (12-78); AST/SGOT 20.0 U/L (15-37); BILIRUBIN TOTAL 0.67 mg/dL (0.3-1.2); BUN CREA RATIO 19.0 (7.0-25.0); CREATININE SERUM 1.66 mg/dL (0.70-1.30); GFR 39.66; GLOBULINA 2.7 G/DL (2.4-3.5); GLUCOSE FASTING 137.0 mg/dL (65-100); OSMOLALITY SERUM 287.0 MOSM/KG (275-295)
[2025-09-22] MEDS ORDERED: MAGNESIUM SULFATE/D5W 1GM/100ML PIGGYBAG IV NR (12:00)
[2025-09-22] MEDS ORDERED: POTASSIUM CHLORIDE 20MEQ/100ML H2O PB IV SCH ×2 (12:00→18:00)
[2025-09-23] VITALS (7 sets, daily range): BP systolic 105–132; BP diastolic 63–85; O2SAT 96–100
[2025-09-24] VITALS (8 sets, daily range): BP systolic 114–117; BP diastolic 58–74; O2SAT 78–100
[2025-09-24 07:14] LABS: BASO % 0.5 % (0.1-1.2); EOS # 0.23 (0.04-0.54); EOS % 2.2 % (0.7-7.0); LYMPH # 0.60 (1.18-3.74); LYMPH % 5.6 % (19.3-53.1); MEAN PLATELET VOLUME 10.20 fl (9.4-12.4); MONO # 0.58 (0.24-0.82); MONO % 5.5 % (4.7-12.5); NEUT # 8.89 (1.56-6.13); NEUT % 83.6 % (34.0-71.1); RED CELL DISTRIBUTION WIDTH 15.8 % (11.6-14.4)
[2025-09-24 07:46] LABS: BUN CREA RATIO 28.0 (7.0-25.0); CREATININE SERUM 2.39 mg/dL (0.70-1.30); GFR 26.05; GLUCOSE FASTING 126.0 mg/dL (65-100); OSMOLALITY SERUM 291.0 MOSM/KG (275-295)
[2025-09-24 07:57] LABS: UREA CLEARANCE 1.0 ML/MIN
[2025-09-24] MEDS ORDERED: BUMETANIDE 2.5 MG/10 ML VIAL IV SCH (21:00)
[2025-09-25] VITALS (7 sets, daily range): BP systolic 119–122; BP diastolic 63–69; O2SAT 90–100
[2025-09-25] MEDS ORDERED: MORPHINE SULFATE 4 MG/ML CARTRIDGE IV PRN (06:30)
[2025-09-25] MEDS ORDERED: PANTOPRAZOLE SODIUM 40 MG/VIAL VIAL IV SCH (08:07)
[2025-09-26] VITALS (10 sets, daily range): BP systolic 82–115; BP diastolic 47–67; O2SAT 98–100
[2025-09-26] MEDS ORDERED: ALBUMIN HUMAN-25 0.25GM/ML (50ML) VIAL IV SCH (05:00)
[2025-09-27] VITALS (10 sets, daily range): BP systolic 93–111; BP diastolic 49–66; O2SAT 90–99
[2025-09-27] MEDS ORDERED: ACETYLCYSTEINE 200 MG/ML 30ML VIAL IH NR (11:30)
[2025-09-27] MEDS ORDERED: ACETYLCYSTEINE 200 MG/ML 30ML VIAL IH SCH (21:00)
[2025-09-28] VITALS (7 sets, daily range): BP systolic 82–106; BP diastolic 47–67; O2SAT 97–99
[2025-09-28] MEDS ORDERED: LANSOPRAZOLE 30 MG CAPSULE NGT SCH (07:30)
[2025-09-29 00:44] VITALS: BP 103/53; O2SAT 96
[2025-09-29 08:00] VITALS: BP 134/71; O2SAT 97
[2025-09-29 16:00] VITALS: BP 118/61; O2SAT 99
[2025-09-30] VITALS: BP 112/67; O2SAT 97
[2025-09-30 08:00] VITALS: BP 118/71; O2SAT 98
[2025-09-30 16:00] VITALS: BP 99/63; O2SAT 97
[2025-10-01 00:22] VITALS: BP 99/53; O2SAT 96
[2025-10-01 15:30] VITALS: BP 116/68; O2SAT 95
[2025-10-01] MEDS ORDERED: SODIUM CHLORIDE FOR INHALATION 1 VIAL.NEB IH SCH (21:00)
[2025-10-02 01:10] VITALS: BP 106/66; O2SAT 97
[2025-10-02 07:42] VITALS: BP 99/56; O2SAT 99
[2025-10-02 16:00] VITALS: BP 104/61; O2SAT 98
[2025-10-03 00:30] VITALS: BP 104/61; O2SAT 98
[2025-10-03 07:55] LABS: ALT/SGPT 17.0 U/L (12-78); AST/SGOT 14.0 U/L (15-37); BILIRUBIN TOTAL 0.49 mg/dL (0.3-1.2); CREATININE SERUM 3.51 mg/dL (0.70-1.30); GFR 16.72; GLOBULINA 3.5 G/DL (2.4-3.5); GLUCOSE FASTING 176.0 mg/dL (65-100)
[2025-10-03 08:02] LABS: BASO % 0.8 % (0.1-1.2); EOS # 0.27 (0.04-0.54); EOS % 2.5 % (0.7-7.0); LYMPH # 1.11 (1.18-3.74); LYMPH % 10.2 % (19.3-53.1); MEAN PLATELET VOLUME 10.60 fl (9.4-12.4); MONO # 0.93 (0.24-0.82); MONO % 8.5 % (4.7-12.5); NEUT # 7.77 (1.56-6.13); NEUT % 71.4 % (34.0-71.1); RED CELL DISTRIBUTION WIDTH 16.0 % (11.6-14.4)
[2025-10-03 08:30] LABS: BUN CREA RATIO 45.0 (7.0-25.0); OSMOLALITY SERUM 338.0 MOSM/KG (275-295)
[2025-10-03 09:24] VITALS: BP 112/71; O2SAT 100
[2025-10-03 09:59] LABS: NEUTROPHILS MAN 66.0 %
[2025-10-03 10:00] LABS: BAND MAN 2.0 %; BASOPHIL MAN 2.0 %; EOSINOPHIL MAN 2.0 %; LYMPHOCYTE MAN 11.0 %; METAMYELOCYTE 3.0 %; MONOCYTE MAN 9.0 %; MYELOCYTE 6.0 %
== END 2025-10-03 14:49 | DRG 177 ==
LOC: ER → SURG 08-24 13:14 → ICU-2 08-24 13:14 → ICU 08-24 15:54 → SURG 09-21 19:53 → ICU 09-21 20:09 → SURG 09-22 14:29
PROVIDERS: Internal Medicine; Internal Medicine Infectious Disease; Internal Medicine Nephrology; Preventive Medicine Public Health & General Preventive Medicine; ADMIT Internal Medicine; ATTEND Internal Medicine
PROC: B246ZZZ Ultrasonography of Right and Left Heart (ICD-10-PCS; principal; 2025-08-24)
PROC: BW21YZZ Computerized Tomography (CT Scan) of Abdomen and Pelvis using Other Contrast (ICD-10-PCS; 2025-08-24)
PROC: BB24YZZ Computerized Tomography (CT Scan) of Bilateral Lungs using Other Contrast (ICD-10-PCS; 2025-08-24)
PROC: BW40ZZZ Ultrasonography of Abdomen (ICD-10-PCS; 2025-08-24)
PROC: 3E0F7GC Introduction of Other Therapeutic Substance into Respiratory Tract, Via Natural or Artificial Opening (ICD-10-PCS; 2025-08-24)
PROC: 30233N1 Transfusion of Nonautologous Red Blood Cells into Peripheral Vein, Percutaneous Approach (ICD-10-PCS; 2025-08-27)
PROC: 02HV33Z Insertion of Infusion Device into Superior Vena Cava, Percutaneous Approach (ICD-10-PCS; 2025-08-28)
PROC: BB24ZZZ Computerized Tomography (CT Scan) of Bilateral Lungs (ICD-10-PCS; 2025-09-05)
PROC: BW21ZZZ Computerized Tomography (CT Scan) of Abdomen and Pelvis (ICD-10-PCS; 2025-09-05)
PROC: BW28ZZZ Computerized Tomography (CT Scan) of Head (ICD-10-PCS; 2025-09-05)
PROC: BW4GZZZ Ultrasonography of Pelvic Region (ICD-10-PCS; 2025-09-08)
PROC: B246ZZZ Ultrasonography of Right and Left Heart (ICD-10-PCS; 2025-09-08)
PROC: BW21ZZZ Computerized Tomography (CT Scan) of Abdomen and Pelvis (ICD-10-PCS; 2025-09-09)
PROC: 06HN33Z Insertion of Infusion Device into Left Femoral Vein, Percutaneous Approach (ICD-10-PCS; 2025-09-09)
PROC: 5A1D70Z Performance of Urinary Filtration, Intermittent, Less than 6 Hours Per Day (ICD-10-PCS; 2025-09-09)
PROC: BB24ZZZ Computerized Tomography (CT Scan) of Bilateral Lungs (ICD-10-PCS; 2025-09-13)
PROC: 5A1D70Z Performance of Urinary Filtration, Intermittent, Less than 6 Hours Per Day (ICD-10-PCS; 2025-09-14)
PROC: BW21ZZZ Computerized Tomography (CT Scan) of Abdomen and Pelvis (ICD-10-PCS; 2025-09-17)
PROC: 5A1D70Z Performance of Urinary Filtration, Intermittent, Less than 6 Hours Per Day (ICD-10-PCS; 2025-09-18)
PROC: 5A1D70Z Performance of Urinary Filtration, Intermittent, Less than 6 Hours Per Day (ICD-10-PCS; 2025-09-19)
PROC: 5A1D70Z Performance of Urinary Filtration, Intermittent, Less than 6 Hours Per Day (ICD-10-PCS; 2025-09-21)
PROC: 4A12X4Z Monitoring of Cardiac Electrical Activity, External Approach (ICD-10-PCS; 2025-09-22)
DX: J69.0 Pneumonitis due to inhalation of food and vomit (principal); A41.9 Sepsis, unspecified organism; R65.21 Severe sepsis with septic shock; N39.0 Urinary tract infection, site not specified; I48.20 Chronic atrial fibrillation, unspecified; N17.8 Other acute kidney failure; I50.30 Unspecified diastolic (congestive) heart failure; J06.9 Acute upper respiratory infection, unspecified; F03.90 Unspecified dementia, unspecified severity, without behavioral disturbance, psychotic disturbance, mood disturbance, and anxiety; E83.42 Hypomagnesemia; K80.20 Calculus of gallbladder without cholecystitis without obstruction; E86.0 Dehydration; I12.9 Hypertensive chronic kidney disease with stage 1 through stage 4 chronic kidney disease, or unspecified chronic kidney disease; N18.30 Chronic kidney disease, stage 3 unspecified; E78.49 Other hyperlipidemia; D64.9 Anemia, unspecified; B96.5 Pseudomonas (aeruginosa) (mallei) (pseudomallei) as the cause of diseases classified elsewhere; B95.7 Other staphylococcus as the cause of diseases classified elsewhere; I11.0 Hypertensive heart disease with heart failure; N50.1 Vascular disorders of male genital organs; Z74.01 Bed confinement status

== ENCOUNTER 2025-10-24 17:13 | Emergency (ER) | payer OTHER ==
[~2025-10-24] VITALS: Ht 167.6 cm; Wt 68.0 kg
[2025-10-24] MEDS ORDERED: VANCOMYCIN HCL 1,000 MG VIAL IV SCH (17:48)
[2025-10-24] MEDS ORDERED: LEVALBUTEROL HCL 0.63 MG/3 ML SOLUTION IH ONE (18:00)
[2025-10-24] MEDS ORDERED: 0.9 % SODIUM CHLORIDE 1,000 ML IV ONE (18:00)
[2025-10-24] MEDS ORDERED: PANTOPRAZOLE SODIUM 40 MG/VIAL VIAL IV ONE (18:00)
[2025-10-24] MEDS ORDERED: SUCRALFATE 1 G TABLET PO ONE (19:45)
[2025-10-24] MEDS ORDERED: [UNRECOGNIZED DRUG - OTHER] PO (19:48)
[2025-10-24] MEDS ORDERED: PROTONIX40 MG PO (19:48)
[2025-10-24] MEDS ORDERED: CARAFATE1 GM PO (19:48)
[2025-10-24] MEDS ORDERED: PANTOPRAZOLE SODIUM 40 MG TABLET.DR PO ONE (20:00)
== END 2025-10-24 21:14 | disposition home or self-care (01) ==
LOC: ER 17:13
DX: K92.2 Gastrointestinal hemorrhage, unspecified (principal); E11.9 Type 2 diabetes mellitus without complications; Z79.84 Long term (current) use of oral hypoglycemic drugs; I10 Essential (primary) hypertension; I50.9 Heart failure, unspecified; Z88.0 Allergy status to penicillin; Z87.898 Personal history of other specified conditions; Z88.6 Allergy status to analgesic agent; Z91.0110 Allergy to milk products, unspecified